=== PATIENT | male | born 1990 | race Caucasian/White ===

== ENCOUNTER → 2016-11-22 | Outpatient (CLI) | payer OTHER ==
[~2016-11-22] MED LIST: ALBUAER2 INH; ATV5X PO; DEXT1LIQ36 PO; DIPH25CA65 PO; DOLU1TAB PO; FLUT0.15 NAE; HYDR25CA PO; PHEN-622 PO; TRV PO; ZLF/50 PO
[2016-11-22 17:42] LABS: BASO % 0.2 %; BASO ABS # 0.02 K/uL (0-0.2); COMPLETE YES; EOS % 1.1 %; HEMATOCRIT 47.6 % (42-52); IG% 0.4 %; LYMPH % 20.4 %; MEAN CELL VOLUME 83.2 fL (80-100); MEAN CORPUSCULAR HEMOGLOBIN 29.4 pg (25-34); MEAN CORPUSCULAR HGB CONC 35.3 g/dl (32-36); MONO % 7.4 %; NEUT % 70.5 %; PLATELET COUNT 277 K/uL (130-400); RED BLOOD COUNT 5.72 M/uL (4.7-6.1); WHITE BLOOD COUNT 8.33 K/uL (4.8-10.8)
[2016-11-22 18:02] LABS: ALT/SGPT 73 U/L (12-78); AST/SGOT 42 U/L (15-37); BLOOD UREA NITROGEN 14 mg/dl (7-18); BUN/CREATININE RATIO 15.2 (10-20); CALCIUM 9.3 mg/dl (8.5-10.1); CARBON DIOXIDE 26 mmol/L (21-32); CHLORIDE 107 mmol/L (98-107); CREATININE 0.94 mg/dl (0.60-1.40); GLUCOSE 93 mg/dl (70-99); POTASSIUM 3.6 mmol/L (3.5-5.1); SODIUM 143 mmol/L (136-145)
[2016-11-22 18:04] LABS: ALB/GLOB RATIO 1.3 (0.9-2); ALKALINE PHOSPHATASE 72 U/L (45-117)
[2016-11-25 01:58] LABS: CHLAMYDIA TRACH RNA*** NOT DETECTED (NOT DETECTED); GC (NEIS GONORRHOEAE)RNA** NOT DETECTED (NOT DETECTED)
== END | disposition home or self-care (01) ==
LOC: C.LAB 16:41
PROVIDERS: ATTEND Internal Medicine Geriatric Medicine
DX: Z72.51 High risk heterosexual behavior (principal)

== ENCOUNTER 2016-12-02 17:19 | Emergency (ER) | payer OTHER ==
[~2016-12-02] VITALS: Ht 188 cm; Wt 138.0 kg
[~2016-12-02 17:19] MED LIST changes: -ATV5X PO; -DOLU1TAB PO; -HYDR25CA PO; -TRV PO; -ZLF/50 PO
[2016-12-02 17:27] VITALS: TEMP 37.1; Ht 188 cm; Wt 138.0 kg
[2016-12-02 19:16] LABS: BASO % 0.5 %; BASO ABS # 0.03 K/uL (0-0.2); COMPLETE YES; EOS % 2.4 %; IG% 0.2 %; LYMPH % 29.7 %; LYMPH ABS # 1.95 K/uL (1.2-3.4); MEAN CELL VOLUME 82.9 fL (80-100); MEAN CORPUSCULAR HEMOGLOBIN 29.5 pg (25-34); MEAN CORPUSCULAR HGB CONC 35.6 g/dl (32-36); MONO % 7.2 %; PLATELET COUNT 239 K/uL (130-400); RED BLOOD COUNT 5.43 M/uL (4.7-6.1); WHITE BLOOD COUNT 6.56 K/uL (4.8-10.8)
[2016-12-02 19:28] LABS: BENZODIAZEPINE, URINE NEG (NEG); COCAINE,URINE NEG (NEG); PHENCYCLIDINE, URINE NEG (NEG)
[2016-12-02 19:37] LABS: BLOOD UREA NITROGEN 13 mg/dl (7-18); BUN/CREATININE RATIO 12.5 (10-20); CALCIUM 8.9 mg/dl (8.5-10.1); CARBON DIOXIDE 27 mmol/L (21-32); CHLORIDE 110 mmol/L (98-107); GLUCOSE 97 mg/dl (70-99); POTASSIUM 3.7 mmol/L (3.5-5.1); SODIUM 144 mmol/L (136-145)
[2016-12-02 19:49] LABS: ALKALINE PHOSPHATASE 73 U/L (45-117); ALT/SGPT 28 U/L (12-78); AST/SGOT 15 U/L (15-37)
[2016-12-02 19:52] LABS: ACETAMINOPHEN < 2 ug/ml (10-30)
[2016-12-02] MEDS ORDERED: ATV5X PO (20:16)
[2016-12-02] MEDS ORDERED: TRV PO (20:16)
[2016-12-02] MEDS ORDERED: ZLF/50 PO (20:16)
[2016-12-02] MEDS ORDERED: DOLU1TAB PO (20:16)
[2016-12-02] MEDS ORDERED: HYDR25CA PO (20:26)
[2016-12-02 20:40] VITALS: BP 148/92; PULSE 94; O2SAT 99
--- NOTE | 2016-12-03 01:21 | EMERGENCY ROOM VISIT NOTE ---
History Report prepared by [place]: Viki Peters Under the Supervision of: Dr. Naldo Villalobos M.D. First contact with patient: 18:11 Chief Complaint: MENTAL HEALTH EVALUATION Stated Complaint: ANXIETY,LOSS OF APPETITE,NO ENERGY TO GET THING DO History of Present Illness The patient is a 26 year old male who presents to the Emergency Room with complaints of worsening anxiety beginning 3 weeks prior to arrival. The patient states that he was informed that he might have an STD 3 weeks ago and this is what triggered the anxiety. His STD testing has so far been negative. The patient does have a history of anxiety and had similar symptoms 4 years ago. He has been experiencing decreased appetite, no motivation and trouble focusing at work. He notes though that he has been sleeping regularly. The patient notes he has had suicidal ideation but denies a plan or acting on it. He has seen his PCP recently who prescribed him Zoloft and Lorazepam for the anxiety. He experiencing negative side effects on the Zoloft. Today the patient took 6 pills of his Lorazepam throughout the day. He denies an intention to hurt himself. He denies any suicidal or homicidal ideations. No chest pain or shortness of breath or headache. Source of History: patient, spouse/significant other Onset: 3 weeks KNOCK OUT HAND Position: other (global) Quality: other (anxiety) Timing: worsening Note: He has been experiencing decreased appetite, no motivation and trouble focusing at work. Review of Systems See HPI for pertinent positives & negatives. A total of 10 systems reviewed and were otherwise negative. Past Medical & Surgical Medical Problems: (1) Asthma (2) Urinary problem Old medical records were reviewed. Nurse's notes were reviewed and I agree with. Family History FH: HTN (hypertension) FH: cancer FH: diabetes mellitus Social History Smoking Status: Never Smoker Alcohol Use: none Drug Use: none Occupation Status: employed Current/Historical Medications Scheduled Dolutegravir Sodium (Tivicay), 50 MG PO DAILY Emtricitabine/Temofovir (Truvada 200-300 mg), 1 TAB PO DAILY Sertraline HCl (Sertraline HCl), 50 MG PO DAILY Scheduled PRN Hydroxyzine Pamoate (Vistaril), 1 CAP PO Q8 PRN for Anxiety Lorazepam (Lorazepam), 0.5 MG PO DAILY PRN for Anxiety Allergies Coded Allergies: No Known Allergies (Unverified , 12/02/16) Physical Exam Vital Signs Date Time Temp Pulse Resp B/P Pulse Ox O2 Delivery O2 Flow Rate FiO2 12/02/16 20:40 94 16 148/92 99 12/02/16 17:27 37.1 96 20 135/90 95 Room Air Physical Exam General: Non-ill appearing young male. Well developed well nourished in no acute distress, breathing comfortably on room air. Normal speech HEENT: Normal cephalic atraumatic. Pupils are equal round and reactive to light. Extraocular movements are intact. Sclerae anicteric. Oropharynx is pink with moist mucous membranes. No swelling of the mouth lips or tongue. Neck: Supple with a midline trachea. No meningeal signs or stiffness, no JVD or bruits. No Stridor. Chest: Clear to auscultation bilaterally. No wheezes or rhonchi. No increased work of breathing. Heart: regular rate and rhythm. Abdomen: Soft nontender, nondistended without rebound guarding or rigidity. Extremities: No cyanosis clubbing or edema. No calf tenderness or assymetry Spine/Back. Non tender to palpation. No CVA tenderness Skin: Good turgor without rashes. Neurologic exam: Cranial nerves two through 12 are intact. Motor and sensation are intact and symmetrical throughout. No tremor. Psych: Normal thought process and affect. Denies suicidal or homicidal ideation. Medical Decision & Procedures Laboratory Results 12/02/16 18:59 Red Blood Count 5.43, Mean Corpuscular Volume 82.9, Mean Corpuscular Hemoglobin 29.5, Mean Corpuscular Hemoglobin Concent 35.6, Mean Platelet Volume 11.0, Neutrophils (%) (Auto) 60.0, Lymphocytes (%) (Auto) 29.7, Monocytes (%) (Auto) 7.2, Eosinophils (%) (Auto) 2.4, Basophils (%) (Auto) 0.5, Neutrophils # (Auto) 3.94, Lymphocytes # (Auto) 1.95, Monocytes # (Auto) 0.47, Eosinophils # (Auto) 0.16, Basophils # (Auto) 0.03 12/02/16 18:59 Test 12/02/16 18:45 12/02/16 18:59 Urine Opiates Screen NEG (NEG) Urine Methadone, Qualitative NEG (NEG) Urine Barbiturates NEG (NEG) Urine Phencyclidine (PCP) Level NEG (NEG) Ur Amphetamine/Methamphetamine NEG (NEG) MDMA (Ecstasy) Screen NEG (NEG) Urine Benzodiazepines Screen NEG (NEG) Urine Cocaine Metabolite NEG (NEG) Urine Marijuana (THC) NEG (NEG) White Blood Count 6.56 K/uL (4.8-10.8) Red Blood Count 5.43 M/uL (4.7-6.1) Hemoglobin 16.0 g/dL (14.0-18.0) Hematocrit 45.0 % (42-52) Mean Corpuscular Volume 82.9 fL (80-100) Mean Corpuscular Hemoglobin 29.5 pg (25-34) Mean Corpuscular Hemoglobin Concent 35.6 g/dl (32-36) Platelet Count 239 K/uL (130-400) Mean Platelet Volume 11.0 fL (7.4-10.4) Neutrophils (%) (Auto) 60.0 % Lymphocytes (%) (Auto) 29.7 % Monocytes (%) (Auto) 7.2 % Eosinophils (%) (Auto) 2.4 % Basophils (%) (Auto) 0.5 % Neutrophils # (Auto) 3.94 K/uL (1.4-6.5) Lymphocytes # (Auto) 1.95 K/uL (1.2-3.4) Monocytes # (Auto) 0.47 K/uL (0.11-0.59) Eosinophils # (Auto) 0.16 K/uL (0-0.5) Basophils # (Auto) 0.03 K/uL (0-0.2) RDW Standard Deviation 38.5 fL (36.4-46.3) RDW Coefficient of Variation 12.9 % (11.5-14.5) Immature Granulocyte % (Auto) 0.2 % Immature Granulocyte # (Auto) 0.01 K/uL (0.00-0.02) Anion Gap 7.0 mmol/L (3-11) Est Creatinine Clear Calc Drug Dose 165.5 ml/min Estimated GFR () 119.9 Estimated GFR (Non- 103.4 BUN/Creatinine Ratio 12.5 (10-20) Calcium Level 8.9 mg/dl (8.5-10.1) Total Bilirubin 0.4 mg/dl (0.2-1) Direct Bilirubin < 0.1 mg/dl (0-0.2) Aspartate Amino Transf (AST/SGOT) 15 U/L (15-37) Alanine Aminotransferase (ALT/SGPT) 28 U/L (12-78) Alkaline Phosphatase 73 U/L (45-117) Total Protein 7.4 gm/dl (6.4-8.2) Albumin 4.1 gm/dl (3.4-5.0) Lipase 137 U/L (73-393) Thyroid Stimulating Hormone (TSH) 2.110 uIu/ml (0.300-4.500) Salicylates Level < 1.7 mg/dl (2.8-20) Acetaminophen Level < 2 ug/ml (10-30) Ethyl Alcohol mg/dL < 3.0 mg/dl (0-3) Laboratory studies as stated above per my review. ED Course 1813: Past medical records reviewed. The patient was evaluated in room B11, and a complete history and physical examination were performed. 1828: I spoke with Rosana - Psych Nurse will speak with the patient. 2014: I reevaluated the patient. He is feeling better and would like to go home. He has an appointment with his doctor on Sunday. 2018: Upon reevaluation, the patient is hemodynamically stable. I discussed the results and treatment plan with the patient. He verbalized agreement of the treatment plan. The patient was discharged home. Medical Decision Differentials include, but are not limited to; anxiety, depression, electrolyte or metabolic abnormalities, toxicological changes, thyroid disease. This patient comes in as described above. He was placed in room B 11. He is feeling anxious. He denies any suicidal or homicidal ideations. He saw his doctor recently and is actually scheduled see his doctor in follow-up on Sunday. He was started on Zoloft and feels it does not make him any better and may be worse , the Ativan does help. He denies any physical complaints. Blood work was obtained and he has no evidence suggest an acute toxicologic, infectious ,metabolic ,electrolyte, or endocrinologic process. He was evaluated by the psychiatric employment case manager who feels he can go home the patient does not feel he needs to be admitted. I am going to have him use Vistaril instead of Ativan to see if that helps better, he can use 25-50 kg every 8 hours was warned that this could make him drowsy and do not take before drinking , driving, working;do not take with Ativan or other sedating medications such as Benadryl. I encouraged him to keep his appointment on Sunday with his primary doctor. He may need to be switched on a different antidepressant long- term. The patient and his friend were happy with plan and he was discharged to home. Impression Primary Impression: Acute anxiety Scribe Attestation The scribe's documentation has been prepared under my direction and personally reviewed by me in its entirety. I confirm that the note above accurately reflects all work, treatment, procedures, and medical decision making performed by me. Departure Information Dispostion Home / Self-Care Prescriptions Hydroxyzine Pamoate (VISTARIL) 25 Mg Cap 1 CAP PO Q8 Y for Anxiety for 30 Days, #10 CAP 1 Refill Prov: Naldo Villalobos M.D. 12/02/16 Referrals Diane Dixon, C.R.N.P. (PCP) Forms HOME CARE DOCUMENTATION FORM, IMPORTANT VISIT INFORMATION Patient Instructions My [facility] Additional Instructions Rest Drink plenty of May use Vistaril 25-50 mg every 8 hours as needed for anxiety Vistaril replaces lorazepam and do not take both. Stopped lorazepam Return to the ER if: Worsening of symptoms, thoughts of hurting yourself or others, any new problems or concerns. Follow-Up with your doctor, keep your appointment on Sunday for recheck
== END 2016-12-02 20:41 | disposition home or self-care (01) ==
LOC: C.EDB 17:20 → C.EDA 20:41
DX: F41.9 Anxiety disorder, unspecified (principal); J45.909 Unspecified asthma, uncomplicated; Z79.899 Other long term (current) drug therapy; Z82.49 Family history of ischemic heart disease and other diseases of the circulatory system; Z80.9 Family history of malignant neoplasm, unspecified; Z83.3 Family history of diabetes mellitus

== ENCOUNTER → 2016-12-11 | Outpatient (CLI) | payer OTHER ==
[~2016-12-11] MED LIST changes: -ALBUAER2 INH; +ATV5X PO; -DEXT1LIQ36 PO; -DIPH25CA65 PO; +DOLU1TAB PO; -FLUT0.15 NAE; +HYDR25CA PO; -PHEN-622 PO; +TRV PO; +ZLF/50 PO
[2016-12-17 22:40] LABS: HSV TYPE 1 DNA Not Detected (Not Detected); HSV TYPE 1&2 DNA SOURCE Serum; HSV TYPE 2 DNA Not Detected (Not Detected)
== END | disposition home or self-care (01) ==
LOC: C.LABBFT 15:28
PROVIDERS: ATTEND Physician Assistant
DX: Z72.51 High risk heterosexual behavior (principal)